=== PATIENT | male | born 2000 ===

== ENCOUNTER 2022-12-10 19:06 | Emergency (ER) | payer MEDICAID, SELFPAY ==
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
[2022-12-10 19:15] VITALS: BP 152/69; PULSE 70; RESP 18; TEMP 36.4; O2SAT 97; BMI 23.1
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
== END 2022-12-10 22:25 | disposition home or self-care (01) ==
PROVIDERS: Emergency Provider Student in an Organized Health Care Education/Training Program
DX: S09.90XA Unspecified injury of head, initial encounter (principal); Y04.2XXA Assault by strike against or bumped into by another person, initial encounter; M79.642 Pain in left hand; Y93.89 Activity, other specified; Y92.219 Unspecified school as the place of occurrence of the external cause; Y99.9 Unspecified external cause status
CPT/HCPCS: 70450; 72125; 73130; 99282; 99283; 99284

== ENCOUNTER 2022-12-14 21:41 | Emergency (ER) | payer MEDICAID, SELFPAY ==
[2022-12-14 21:59] VITALS: BP 122/69; PULSE 68; RESP 16; TEMP 36.6; O2SAT 100; BMI 29.7
[2022-12-14 23:42] VITALS: BP 135/58; PULSE 54; RESP 16; TEMP 36.6; O2SAT 98
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
== END 2022-12-15 00:20 | disposition home or self-care (01) ==
PROVIDERS: Emergency Provider Emergency Medicine
DX: Z04.9 Encounter for examination and observation for unspecified reason (principal)
CPT/HCPCS: 99282; 99284